=== PATIENT | male | born 1965 | race Caucasian/White ===

== ENCOUNTER 2020-10-31 00:31 | Emergency (ER) | payer MEDICAID, MEDICARE ==
[2020-10-31 00:32] VITALS: BP 143/82
[2020-10-31] MEDS ORDERED: ACETAMINOPHEN 325 MG TABLET PO ONE (01:00)
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
[2020-10-31 01:09] LABS: MICROSCOPIC NOT IND
[2020-10-31] MEDS ORDERED: ACETAMINOPHEN 325 MG TABLET ONE (01:47)
--- NOTE | 2020-10-31 01:57 | NUR ---
PT UPSET ABOUT DC INSTRUCTIONS. KEEPS ASKING "CAN I JUST LAY DOWN FOR A MINUTE?" IN HOSTILE TONE. PT EXPLAINED ABOUT DC PAPERWORK. PT UPSET AND SAID HE'LL LEAVE IF HE CAN HAVE A CAB VOUCHER. CAB VOUCHER PROVIDED FOR PT. PT WITH STEADY INDEPENDENT GAIT.
== END 2020-10-31 02:08 | disposition home or self-care (01) ==
LOC: ED 02:04
DX: G89.11 Acute pain due to trauma (principal); M25.511 Pain in right shoulder; F17.210 Nicotine dependence, cigarettes, uncomplicated; X58.XXXA Exposure to other specified factors, initial encounter; Y93.89 Activity, other specified; Y92.410 Unspecified street and highway as the place of occurrence of the external cause; Y99.8 Other external cause status
CPT/HCPCS: 81003; 99406

== ENCOUNTER 2020-11-25 14:23 | Emergency (ER) | payer SELFPAY ==
[~2020-11-25] VITALS: Ht 172.7 cm; Wt 58.2 kg
[2020-11-25] MEDS ORDERED: DIPHENHYDRAMINE 50 MG/ML, 1ML ONE (14:48)
[2020-11-25] MEDS ORDERED: FAMOTIDINE 20 MG/2 ML ONE (14:48)
[2020-11-25] MEDS ORDERED: methylPREDNISolone SOD SUCC 125 MG/2 ML ONE (14:48)
[2020-11-25] MEDS ORDERED: EPINEPHRINE 1 MG/ML, 1ML ONE (14:50)
[2020-11-25] MEDS ORDERED: FAMOTIDINE 20 MG/2 ML IVPush ONE (15:00)
[2020-11-25] MEDS ORDERED: methylPREDNISolone SOD SUCC 125 MG/2 ML IVPush ONE (15:00)
[2020-11-25] MEDS ORDERED: EPINEPHRINE 1 MG/ML, 1ML SQ ONE (15:00)
[2020-11-25] MEDS ORDERED: SODIUM CHLORIDE 0.9% 1,000ML IVBOLUS ONE (15:00)
[2020-11-25] MEDS ORDERED: SODIUM CHLORIDE FLUSH 10ML SYR IVF ONE (15:00)
[2020-11-25] MEDS ORDERED: DIPHENHYDRAMINE 50 MG/ML, 1ML IVPush ONE (15:00)
[2020-11-25 15:12] LABS: BASOPHILS % (AUTO) 0 % (0-1); EOSINOPHILS % (AUTO) 0 % (1-7); LYMPHOCYTES % (AUTO) 6 % (22-44); MEAN CORPUSCULAR HEMOGLOBIN 32.1 pg (27.5-34.5); MEAN CORPUSCULAR HGB CONC 33.6 g/dL (33.2-36.2); MEAN PLATELET VOLUME 7.7 fL (7.4-10.4); MONOCYTES % (AUTO) 8 % (2-9); NEUTROPHILS % (AUTO) 86 % (42-75); PLATELET COUNT 220 x10^3/uL (130-400); RED BLOOD COUNT 4.51 x10^6/uL (4.38-5.82); RED CELL DISTRIBUTION WIDTH 13.3 % (9.4-14.8)
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
[2020-11-25 15:25] LABS: ALBUMIN 2.7 g/dL (3.4-5.0); ANION GAP 9 mmol/L (5-15); CALCIUM 8.2 mg/dL (8.5-10.1); CHLORIDE 100 mmol/L (98-107)
[2020-11-25 15:28] LABS: ALANINE AMINOTRANSFERASE 57 U/L (12-78); ALKALINE PHOSPHATASE 98 U/L (45-117); BILIRUBIN,TOTAL 0.6 mg/dL (0.2-1.0); CREATININE 0.71 mg/dL (0.7-1.3); TOTAL PROTEIN 7.3 g/dL (6.4-8.2)
[2020-11-25] MEDS ORDERED: CEFAZOLIN PMX 1GM/50ML 50 ML IV ONE (15:30)
[2020-11-25] MEDS ORDERED: CEFAZOLIN PMX 1GM/50ML 50 ML ONE (15:55)
[2020-11-25 15:58] VITALS: BP 151/85
== END 2020-11-25 17:04 | disposition home or self-care (01) ==
LOC: ED 15:11
DX: L03.211 Cellulitis of face (principal); T78.49XA Other allergy, initial encounter
CPT/HCPCS: 36415; 80053; 85025; 96361; 96365; 96372; 96375; 99284; J0171; J0690; J1200; J2930; J7030